=== PATIENT | female | born 1985 | race Caucasian/White ===

== ENCOUNTER 2017-07-08 08:00 | Outpatient (CLI) | payer BC, OTHER | END 2017-07-08 08:01 | disposition home or self-care (01) | LOC: LAB.R 08:00 | PROVIDERS: ATTEND Obstetrics & Gynecology | DX: Z11.3 Encounter for screening for infections with a predominantly sexual mode of transmission (principal) | CPT/HCPCS: 87491; 87591 ==

== ENCOUNTER 2017-08-09 13:40 | Outpatient (CLI) | payer OTHER ==
[2017-08-09 14:05] LABS: BASOPHILS # (AUTO) 0.1 10^3/uL (0.0-0.1); BASOPHILS % (AUTO) 0.6 %; EOSINOPHILS # (AUTO) 0.1 10^3/uL (0.0-0.7); EOSINOPHILS % (AUTO) 1.5 %; HCT - HEMATOCRIT 34.1 % (37.0-47.0); HGB - HEMOGLOBIN 11.9 g/dL (12.0-16.0); LYMPHOCYTES # (AUTO) 2.3 10^3/uL (1.5-3.5); LYMPHOCYTES % (AUTO) 24.3 %; MEAN CORPUSCULAR HEMOGLOBIN 29.9 pg (27.0-31.0); MEAN CORPUSCULAR HGB CONC 34.8 g/dL (32.0-36.0); MEAN CORPUSCULAR VOLUME 85.8 fL (81.0-99.0); MONOCYTES # (AUTO) 0.5 10^3/uL (0.0-1.0); MONOCYTES % (AUTO) 5.1 %; NEUTROPHILS # (AUTO) 6.6 10^3/uL (1.5-6.6); NEUTROPHILS % (AUTO) 68.5 %; RED BLOOD COUNT 3.98 10^6/uL (4.20-5.40); RED CELL DISTRIBUTION WIDTH 13.1 % (12.0-15.0); UNCORRECTED WHITE BLOOD COUNT 9.6 x10^3/uL; WHITE BLOOD COUNT 9.6 x10^3/uL (4.8-10.8)
[2017-08-09 14:12] LABS: BILIRUBIN,URINE NEGATIVE (NEGATIVE); PH,URINE 7.5 PH (5.0-7.5)
[2017-08-09 14:46] LABS: WBC,URINE 0-3 /HPF (0-5)
[2017-08-13 20:01] LABS: TEST RESULT REPORT
== END 2017-08-09 13:41 | disposition home or self-care (01) ==
LOC: LAB 13:40
PROVIDERS: ATTEND Obstetrics & Gynecology
DX: Z36.9 Encounter for antenatal screening, unspecified (principal)
CPT/HCPCS: 36415; 81001; 81599; 85025; 86762; 86850; 86900; 86901; 87340; 87389

== ENCOUNTER 2017-11-25 11:52 | Outpatient (CLI) | payer MEDICAID | END 2017-11-25 11:53 | disposition home or self-care (01) | LOC: LAB 11:52 | PROVIDERS: ATTEND Obstetrics & Gynecology | DX: Z34.90 Encounter for supervision of normal pregnancy, unspecified, unspecified trimester (principal) | CPT/HCPCS: 36415; 82950 ==

== ENCOUNTER 2018-01-03 10:48 | Outpatient (CLI) | payer MEDICAID | END 2018-01-03 10:49 | disposition home or self-care (01) | LOC: LAB.R 10:48 | PROVIDERS: ATTEND Obstetrics & Gynecology | DX: Z36.85 Encounter for antenatal screening for Streptococcus B (principal) | CPT/HCPCS: 87081 ==

== ENCOUNTER 2018-01-30 12:52 | Outpatient (CLI) | payer MEDICAID ==
--- NOTE | 2018-01-30 14:32 | Ultrasound Report ---
OB FOLLOWUP: 01/30/2018 CLINICAL INDICATION: Check size, term . COMPARISON: Report of outside ultrasound dated 09/17/2017. TECHNIQUE: Real-time scanning was performed with litigation claim representative static images obtained. LAST MENSTRUAL PERIOD: 04/21/2017 Clinical Age: 40 weeks 4 days US Age: 40 weeks 2 days EFW Hadlock: 4053 grams EFW% Hadlock: 75% Heart Rate: 140 bpm EDC: 01/26/2018 US EDC: 01/28/2018 BPD Hadlock: 39 weeks 5 days; Mean mm 97 HC Hadlock: 40 weeks 1 day; Mean mm 347 AC Hadlock: 40 weeks 3 days; Mean mm 365 FL Hadlock: 40 weeks 5 days; Mean mm 80 Presentation: cephalic Placental Location: posterior Cervical Length: -- Amniotic Fluid: GLENN 15.4 cm; MVP 5.4 cm FINDINGS: There is a single viable intrauterine gestation, in cephalic presentation. heart rate is 140 BPM. The placenta is posterior, without evidence of previa. Amniotic fluid volume is normal, with an GLENN of 15.4. By size, the fetus measures 40 weeks 2 days (40 weeks 4 days by previous sonogram). Estimated weight by Hadlock method is 4053 grams. IMPRESSION: SINGLE VIABLE INTRAUTERINE GESTATION, WITH EXPECTED GROWTH FROM PREVIOUS OUTSIDE SONOGRAM. ESTIMATED WEIGHT OF 4053 GRAMS. NORMAL GLENN. TD: 01/30/2018 14:17 MTDD
== END 2018-01-30 12:53 | disposition home or self-care (01) ==
LOC: DI 12:52
PROVIDERS: ATTEND Obstetrics & Gynecology
DX: Z36.2 Encounter for other antenatal screening follow-up (principal)
CPT/HCPCS: 76816

== ENCOUNTER 2018-02-05 07:45 | Inpatient (IN) | payer MEDICAID ==
[2018-02-05] MEDS ORDERED: SODIUM CHLORIDE FLUSH 0.9% 10 ML SYRINGE IVP PRN (07:59)
[2018-02-05] MEDS ORDERED: LACTATED RINGERS 1,000 ML IV SCH ×2 (08:00→10:00)
[2018-02-05] MEDS ORDERED: SODIUM CHLORIDE FLUSH 0.9% 10 ML SYRINGE ONE (08:03)
[2018-02-05 08:10] LABS: BASOPHILS # (AUTO) 0.1 10^3/uL (0.0-0.1); BASOPHILS % (AUTO) 0.7 %; EOSINOPHILS # (AUTO) 0.1 10^3/uL (0.0-0.7); EOSINOPHILS % (AUTO) 0.8 %; HGB - HEMOGLOBIN 13.4 g/dL (12.0-16.0); LYMPHOCYTES # (AUTO) 3.7 10^3/uL (1.5-3.5); LYMPHOCYTES % (AUTO) 26.8 %; MEAN CORPUSCULAR HEMOGLOBIN 29.8 pg (27.0-31.0); MEAN CORPUSCULAR HGB CONC 34.4 g/dL (32.0-36.0); MEAN CORPUSCULAR VOLUME 86.6 fL (81.0-99.0); MEAN PLATELET VOLUME 7.7 fL (7.9-10.8); MONOCYTES # (AUTO) 0.8 10^3/uL (0.0-1.0); MONOCYTES % (AUTO) 5.5 %; NEUTROPHILS # (AUTO) 9.2 10^3/uL (1.5-6.6); NEUTROPHILS % (AUTO) 66.2 %; PLT - PLATELET COUNT 240 10^3/uL (130-450); RED BLOOD COUNT 4.51 10^6/uL (4.20-5.40); RED CELL DISTRIBUTION WIDTH 13.3 % (12.0-15.0)
[2018-02-05] MEDS ORDERED: OXYTOCIN/SODIUM CHLORIDE 500 ML IV ONE (08:17)
[2018-02-05] MEDS ORDERED: HYDROmorphone 1 MG/ML CARPUJECT IVP PRN ×2 (08:20→09:09)
[2018-02-05] MEDS ORDERED: LIDOCAINE 1% 50 ML MDV ONE ×2 (08:24→08:52)
[2018-02-05] MEDS ORDERED: HYDROmorphone 0.5 MG/0.5 ML SYRINGE ONE ×2 (08:30→08:39)
[2018-02-05] MEDS ORDERED: SODIUM CHLORIDE FLUSH 0.9% 10 ML SYRINGE IVP SCH (09:00)
[2018-02-05] MEDS ORDERED: diphenhydrAMINE 25 MG CAPSULE PO PRN (09:06)
[2018-02-05] MEDS ORDERED: WITCH HAZEL/GLYCERIN 1 EACH MED..PAD TOP PRN (09:06)
[2018-02-05] MEDS ORDERED: HYDROcod/ACETAM 5/325 MG TABLET PO PRN (09:06)
[2018-02-05] MEDS ORDERED: OXYTOCIN/SODIUM CHLORIDE 250 ML IV ONE (09:06)
[2018-02-05] MEDS ORDERED: ONDANSETRON 4 MG/2 ML VIAL IVP PRN (09:06)
[2018-02-05] MEDS: IBUPROFEN 600 MG TABLET PO SCH ×3 (09:38→22:10)
[2018-02-05] MEDS: ACETAMINOPHEN 500 MG TABLET PO SCH ×2 (09:40→17:52)
[2018-02-05] MEDS: HYDROCORTISONE/PRAMOXINE 10 GM PR PRN ×2 (09:47→22:10)
--- NOTE | 2018-02-05 10:14 | DELIVERY NOTE ---
Delivery Note - Labor Labor: positive: Spontaneous - Delivery Method Delivery Method: positive: Spontaneous vaginal delivery - Presentation Presentation: positive: Vertex - Nuchal Cord Nuchal Cord: positive: None - Anesthetic Anesthetic: positive: Lidocaine - 0.5% plain Volume: positive: Other (27cc) - Amniotic Fluid Description Amniotic Fluid Description: positive: Clear - Episiotomy Type Episiotomy Type: positive: None - Laceration Laceration: positive: 2nd degree - Suture Suture Type: positive: Vicryl Suture Size: positive: 2-0, 3-0 - Delivery Outcome Delivery Outcome: positive: Livebirth - sex: positive: Male (Weight 10 lbs. 10.7 oz) - Placenta Placenta: positive: Intact, Spontaneous - Estimated Blood Loss Estimated Blood Loss (in cc): 400 - Post Delivery Events Post Delivery Events: positive: Shoulder dystocia (Shoulder dystocia uneventfully managed with Woodrow procedure and corkscrew. moved all 4 extremities and had no evidence of brachial palsy. Reference pediatric exam by Dr. Boykin) - Delivery Comments (Free Text/Narrative) Delivery Comments (Free Text/Narrative): macrosomia contributed to difficult delivery with shoulder dystocia and necessitated extensive vaginal repair.
--- NOTE | 2018-02-05 11:55 | HISTORY & PHYSICAL EXAMINATION ---
DATE OF SERVICE: 02/05/2018 Physician: Ranulfo Love MD DIAGNOSES 1. Active labor. 2. Macrosomic infant. HISTORY OF PRESENT ILLNESS: The patient is a 32-year-old woman, 2, para 1, who notes rupture of membranes at 0600 with labor contractions beginning by 6: 08. She had no foul or macrosomic fluid. She is GBS negative. She began to have strong contractions and came immediately to the hospital and was admitted at or around 7:40. Active labor was evident and I was called immediately to evaluate the patient and responded accordingly. At the time of initial evaluation, the patient was 8 cm, +1 station with clear fluid and vertex presentation. Estimated weight was 9 pounds plus. Patient had prior ultrasound evaluation due to fundal height running well above dates that was 4000 grams plus. BASIC LABS: Chlamydia/GC negative; blood type O positive, antibody screen negative. RPR negative, rubella immune, hepatitis B surface antigen negative, HIV negative. Urinalysis negative. anatomy scan normal. Glucola challenge test normal at 99. GBS negative. PAST MEDICAL HISTORY: Right breast lump with lumpectomy in 2012, benign. No nonsurgical hospitalizations or chronic disease history other than pneumonia in college. ALLERGIES: NONE. MEDICATIONS 1. vitamins. 2. Iron. FAMILY HISTORY: No inheritable diseases or chromosomal defects noted. SOCIAL HISTORY: . Self employed user interface artist. No drug, tobacco or alcohol use. REVIEW OF SYSTEMS CONSTITUTIONAL: Negative. RESPIRATORY: Negative. CARDIAC: Negative. BREASTS: Negative. GASTROINTESTINAL: Negative. GENITOURINARY: Negative. No STD history. No abnormal Pap smears. PHYSICAL EXAMINATION GENERAL: Uncomfortable in the throes of labor. VITAL SIGNS: Posted. HEENT: Supple neck, no thyromegaly. LUNGS: Clear. CARDIAC: Regular, no murmur, no gallop. ABDOMEN: No tenderness, No organomegaly or evident hernia UTERUS: Regular uterine contractions every 3 minutes. EFW Estimated at 9-9-1/ 2 pounds. heart tracing category 1. EXTERNAL GENITALIA: No lesions. Cervix 8 cm +1+2. EXTREMITIES: Nonedematous. ADMISSION LABS: Pending. ASSESSMENT: Patient is in active phase of labor and progressing rapidly. Anticipate macrosomic infant. PLAN: Reviewed delivery plan with nursing to include Shoulder dystocia instructions reviewed. Discussed delivery with the patient and possibility of shoulder dystocia. TD: 02/05/2018 11:54 ANDREW
--- NOTE | 2018-02-05 13:34 | PROCEDURE REPORT ---
DATE OF SERVICE: 02/05/2018 Physician: Ranulfo Love MD PREDELIVERY DIAGNOSES 1. 40-week, 3-day gestation. 2. Suspected macrosomia. 3. Active labor. POSTDELIVERY DIAGNOSES 1. Difficult vaginal delivery. 2. Rapidly progressing labor. 3. Shoulder dystocia. 4. Living male infant, macrosomic ( weight 10 pounds, 10.7 ounces), without apparent injury or congenital anomaly. 5. 40-week 3-day gestation. 6. Suspected macrosomia. 7. Active labor. PROCEDURES 1. Spontaneous vaginal delivery manually assisted. 2. Woodrow procedure. 3. Corkscrew procedure to relieve shoulder dystocia. 4. Repair of extensive vaginal and perineal laceration (grade 2 midline and right lateral). WASH AND GREASER: Ranulfo Love MD, FACOG, FICS HOME MISSION WORKER: Dr. Boykin, Pediatrics, arrived shortly after delivery. ANESTHESIA 1. 27 mL of lidocaine 1% local to perineum and vagina. 2. Dilaudid IV push, total of 1 mg that was given in two 0.5 mg doses. DRAINS: None. ESTIMATED BLOOD LOSS: 400 mL COMPLICATIONS: Shoulder dystocia, resolved with Woodrow and corkscrew. FINDINGS: Patient's labor began at 0600 with rupture of membranes and contractions following shortly thereafter. She presented to the hospital at or about 0730 hours. At time of my examination shortly before 8 a.m., she was 8 cm and progressing rapidly. At 0818 hours, patient crowned atraumatically. There was no cord entanglement or nuchal cord. Macrosomic had challenging shoulders to deliver, which was accomplished with Woodrow and corkscrew. A 10-pound 10.7 ounce infant was birthed, with Apgars of 9/9. There was no obvious injury or congenital anomalies. Reference Dr. Boykin's note, who came shortly after the . Examination of the vagina found a midline laceration that extended inward 3 cm and then to the right lateral sulcus and up another 6 cm. The perineal body was disrupted. However, the external anal sphincter was intact. There was no encroachment on the rectum itself. TECHNIQUE: I came shortly after the patient was being prepared for admission. Her dilation had already progressed from 6 to 8 cm in a short period of time. The head had descended down to +2, which was reassuring given the suspected macrosomia. She had a pelvis proven to 8 pounds 9 ounces, and bony anatomy seemed adequate for a 9-pound . Estimated weight was between 9 and 9.5 pounds. Patient was very uncomfortable but able to follow commands. She was pushing uncontrollably. We used push and stretch to prevent introital damage. There was a moderate amount of caput. Dystocia plan was briefly reviewed with nursing staff and discussed with the patient. and patient were very cooperative and followed instructions well. She was painful from the intensity of the labor. At 0818 hours, the head uneventfully crowned. There was no nuchal cord. Shoulders were slow to deliver. Total time equals X - 1.5 minutes estimated. First, patient was in the high dorsal lithotomy position and hyperflexed hips to complete the Woodrow procedure. Next, a counterclockwise type turn was used to bring the anterior shoulder into the optimal diameter. With mild traction on the head, the shoulder dislodged. There was by this time a substantial laceration, which eased the delivery of the posterior shoulder. Infant was placed on the maternal abdomen and responded well. We did not clamp the cord immediately until pulsations ceased. At that point, cord was doubly clamped and transected. The vaginal lacerations were assessed. The patient was still painful and initially 22 mL of lidocaine was placed in the perineal region and lower vagina. The patient had a difficult time cooperating due to pain and so 0.5 mg of Dilaudid was pushed IV initially, which gave some relief, but not adequate relief. Remainder 0.5 mg was then pushed. Once the patient relaxed, the extent of the laceration became evident. We traced laceration on the right side up to the top and then closed with a running interlocked stitch of 2-0 Vicryl. A second strand of 2-0 Vicryl then was placed from the lateral portion of the tear to the medial and down to the introital ring. The perineal body was reconstructed with 4 sutures of 2-0 Vicryl. Next, the skin was closed with multiple vertical mattress stitches of 2-0 Vicryl. There was an obvious right-sided hematoma that extended from the lower portion of the vulva to the perineum. This remained stable. Ice would be applied at a future point. At this point, patient felt more contractions, and the placenta was expelled intact. It was inspected, and there was no evidence of abruption or infection. Cord was 3-vessel and as noted above, no entanglement. All sponge, needle, and instrument counts were confirmed as correct. Patient recovered quickly. Uterine massage and Pitocin stemmed uterine blood loss. Glove check was made of the rectum to ensure there were no occult lacerations. Mother, father, and infant all bonded well. She began nursing immediately. BASIC LABS: GBS negative, RPR negative, rubella immune, blood type O positive, antibody screen negative. TD: 02/05/2018 12:13
[2018-02-05] MEDS: DOCUSATE SODIUM 100 MG CAPSULE PO SCH (22:06)
[2018-02-06] MEDS: IBUPROFEN 600 MG TABLET PO SCH ×2 (05:51→12:46)
[2018-02-06] MEDS: ACETAMINOPHEN 500 MG TABLET PO SCH ×2 (05:51→16:06)
--- NOTE | 2018-02-06 06:25 | PROVIDER PROGRESS NOTE ---
Subjective - Prog Note Date Prog Note Date: 02/06/18 Prog Note Time: 06:00 - Subjective Pt reports feeling: Improved Subjective: Mrs. Power delivered a macrosomic infant yesterday and is recovering well. She reports no problems with defecation or micturition. She has no fevers chills or symptoms suggestive of PIH. Breast-feeding is going well with good latch on and adequate letdown. Patient would like to leave this afternoon if possible because of her son's birthday green party. Thus far she is been able to do self-care activities such as washing toileting walking etc. Objective - Vital Signs/Intake & Output Vital Signs: Vital Signs x48h Temp Pulse Resp BP Pulse Ox 02/06/18 05:30 97.9 F 84 16 123/71 100 02/06/18 01:02 98.4 F 80 16 123/67 98 02/05/18 22:26 97.8 F 88 16 118/76 Intake & Output: Intake & Output 02/03/18 02/04/18 02/05/18 02/06/18 23:59 23:59 23:59 23:59 Intake Total 1150 250 Output Total 850 Balance 300 250 - Lab Results Fish Bones: 02/05/18 08:00 Other Labs: Lab Results x24hrs 02/05/18 Range/Units 08:00 WBC 14.0 H (4.8-10.8) x10^3/uL RBC 4.51 (4.20-5.40) 10^6/uL Hgb 13.4 (12.0-16.0) g/dL Hct 39.0 (37.0-47.0) % MCV 86.6 (81.0-99.0) fL MCH 29.8 (27.0-31.0) pg MCHC 34.4 (32.0-36.0) g/dL RDW 13.3 (12.0-15.0) % Plt Count 240 (130-450) 10^3/uL MPV 7.7 L (7.9-10.8) fL Neut # 9.2 H (1.5-6.6) 10^3/uL Lymph # 3.7 H (1.5-3.5) 10^3/uL Gosper # 0.8 (0.0-1.0) 10^3/uL Eos # 0.1 (0.0-0.7) 10^3/uL Baso # 0.1 (0.0-0.1) 10^3/uL Absolute Nucleated RBC 0.01 x10^3/uL Nucleated RBC % 0.0 /100WBC Exam - Exam Vital Signs: Vital Signs (72 hours) 02/05/18 02/05/18 02/05/18 09:00 09:21 09:31 Temperature Heart Rate [ 105 H 96 96 Apical] Respiratory 20 20 18 Rate Blood Pressure 143/55 H 117/70 124/83 H [Right Brachial artery] O2 Saturation 98 99 99 02/05/18 02/05/18 02/05/18 09:56 10:06 10:16 Temperature Heart Rate [ 89 97 98 Apical] Respiratory 16 Rate Blood Pressure 132/75 H 131/83 H 136/77 H [Right Brachial artery] O2 Saturation 99 99 99 02/05/18 02/05/18 02/05/18 10:30 10:59 13:12 Temperature 98.8 F Heart Rate [ 103 H 92 Apical] Respiratory Rate Blood Pressure 115/69 124/79 [Right Brachial artery] O2 Saturation 99 99 02/05/18 02/05/18 02/05/18 13:35 18:00 22:26 Temperature 99.0 F 97.8 F Heart Rate [ 90 98 88 Apical] Respiratory 16 22 16 Rate Blood Pressure 110/73 102/88 H 118/76 [Right Brachial artery] O2 Saturation 100 99 02/06/18 02/06/18 01:02 05:30 Temperature 98.4 F 97.9 F Heart Rate [ 80 84 Apical] Respiratory 16 16 Rate Blood Pressure 123/67 123/71 [Right Brachial artery] O2 Saturation 98 100 General: Alert, Oriented x3, Cooperative HEENT: Mucous membr. moist/pink Lungs: Clear to auscultation Cardiovascular: Regular rate Abdomen: Normal bowel sounds, No tenderness, Other (Uterus is 17 weeks size firm and nontender. Lochia is rubra non-foul and reported as mild.) Extremities: No edema Skin: No rashes Psych/Mental Status: Mental status NL, Mood NL Assessment/Plan - Assessment/Plan Assessment: Patient is recovering well from a macrosomic with second-degree laceration. Patient strongly desires to go home this afternoon and if recovery continues we hope to honor her wishes. Plan: Continue supportive care today. If pediatrics clears infant for discharge and no problems arise with mother, she may be discharged later this afternoon at 1500 hrs.
--- NOTE | 2018-02-06 07:14 | DISCHARGE SUMMARY ---
Physician: Ranulfo Love MD DATE OF ADMISSION: 02/05/2018 DATE OF DISCHARGE: 02/06/2018 DIAGNOSES 1. A 40-week gestation, in active labor. 2. Delivery of a macrosomic infant (10 pounds 10.7 ounces). 3. Shoulder dystocia. PROCEDURE: Assisted vaginal delivery with the repair of second degree laceration; Woodrow maneuver and corkscrew maneuver to successfully resolve shoulder dystocia. COMPLICATIONS: Shoulder dystocia, resolved successfully. HISTORY: Patient is a 32-year-old, , 2, para 1 woman who had ruptured membranes and was in active labor at the time of her presentation. She is GBS negative. She was having strong contractions and labor advanced rapidly. Reference typewritten H and P. BASELINE LABORATORIES: Blood type O positive, antibody screen negative, RPR negative, rubella immune, hepatitis B surface negative, HIV negative and normal glucose tolerance test and negative GBS. HOSPITAL COURSE: Patient rapidly moved through the latter stages of the active phase and had a short second stage of labor. During assessment, patient was suspected to have macrosomic , 9 to 9.5 pounds. Head descended well and overall second stage of labor progressed well. Push and stretch technique was used and the crowned at 0818. After , the shoulders were tight and impacted behind the pubis. Patient was moved in Woodrow and finally resolved with corkscrew. A 10-pound 10.7-ounce infant was delivered without complication, and scored Apgars of [address] Boykin evaluated the infant soon after delivery. Reference typewritten note. Post delivery, patient did well, rapidly advancing full diet and activity. She defecated and micturated without problems. Her wound remained intact. Preoperative hemoglobin was 13.4 and postoperative pending. Throughout post-delivery day 1, patient steadily gained strength and regained normal function. She nursed well. She strongly desired discharge to attend her 1 child's birthday. With pediatric clearance, she was discharged home. Complete wound care, including daily sitz baths, was reviewed with patient. Warning signs were reviewed to include fever, foul discharge, perineal tenderness and abdominal pain. DISCHARGE MEDICATIONS Were: 1. Motrin 600 q.4 hours. 2. [place] 325/5 q.6 hours p.r.n. breakthrough pain. 3. Colace 250 b.i.d. FOLLOWUP: Patient will be reevaluated in 2 weeks for a wound check. TD: 02/06/2018 07:13 MTDD
[2018-02-06 09:09] LABS: BASOPHILS # (AUTO) 0.1 10^3/uL (0.0-0.1); BASOPHILS % (AUTO) 0.6 %; EOSINOPHILS # (AUTO) 0.1 10^3/uL (0.0-0.7); EOSINOPHILS % (AUTO) 0.7 %; HGB - HEMOGLOBIN 11.8 g/dL (12.0-16.0); LYMPHOCYTES # (AUTO) 2.4 10^3/uL (1.5-3.5); LYMPHOCYTES % (AUTO) 18.5 %; MEAN CORPUSCULAR HEMOGLOBIN 29.9 pg (27.0-31.0); MEAN CORPUSCULAR HGB CONC 34.3 g/dL (32.0-36.0); MEAN PLATELET VOLUME 7.7 fL (7.9-10.8); MONOCYTES # (AUTO) 0.5 10^3/uL (0.0-1.0); MONOCYTES % (AUTO) 3.6 %; NEUTROPHILS # (AUTO) 9.8 10^3/uL (1.5-6.6); NEUTROPHILS % (AUTO) 76.6 %; PLT - PLATELET COUNT 211 10^3/uL (130-450); RED BLOOD COUNT 3.96 10^6/uL (4.20-5.40); RED CELL DISTRIBUTION WIDTH 13.5 % (12.0-15.0); WHITE BLOOD COUNT 12.8 x10^3/uL (4.8-10.8)
[2018-02-06] MEDS: DOCUSATE SODIUM 100 MG CAPSULE PO SCH (10:39)
[2018-02-06 11:31] VITALS: BP 118/66
--- NOTE | 2018-02-06 18:16 | Labor Flowsheet ---
Labor Flowsheet Datetime Report Generated by CPN: 02/06/2018 18:15 Datetime: 02/06/2018 10:19 VITAL SIGNS NBP Sys/Vangie/Mean (mmHg): 118 : 66 : 79 Pulse: 87 LaborFlag: Labor Datetime: 02/06/2018 01:04 SpO2 (%): 98 Datetime: 02/05/2018 08:26 VAGINAL EXAM Membranes Ruptured Date/Time: 02/04/2018 06:00 Membranes Rupture Method: Spontaneous Amniotic Fluid Color: Clear Amniotic Fluid Amount: Small Amniotic Fluid Odor: Normal Datetime: 02/05/2018 08:12 ASSESSMENT A Monitor Interventions for FHR: Ultrasound Adjusted Variability: Moderate 6-25 bpm Decelerations: Early Category: Category II Datetime: 02/05/2018 08:10 Stage 2 Comments: Shoulder dystocia noted. Woodrow performed. Provider using corkscrew manuever. Datetime: 02/05/2018 08:09 Pushing Progress: with Pushing; Pushing Effectively with Contractions Datetime: 02/05/2018 08:05 COMMUNICATION Communication Comments: Dr. Love @ bedside for delivery Datetime: 02/05/2018 08:04 STAGE 2 Pushing: Coached on Pushing; Urge to Push; Involuntary Pushing Pushing Position: Pushing with Contractions
== END 2018-02-06 16:20 | disposition home or self-care (01) | DRG 775 ==
LOC: WFO 07:45 → FBP 07:46 → WFO 07:49 → FBP 07:50
PROVIDERS: ADMIT Obstetrics & Gynecology; ATTEND Obstetrics & Gynecology
PROC: 10E0XZZ Delivery of Products of Conception, External Approach (ICD-10-PCS; principal; 2018-02-05)
PROC: 0KQM0ZZ Repair Perineum Muscle, Open Approach (ICD-10-PCS; 2018-02-05)
DX: O66.2 Obstructed labor due to unusually large fetus (principal); O66.0 Obstructed labor due to shoulder dystocia; O70.1 Second degree perineal laceration during delivery; Z3A.40 40 weeks gestation of pregnancy; Z37.0 Single live birth
CPT/HCPCS: 85025

== ENCOUNTER 2021-05-01 08:00 | Outpatient (CLI) | payer MEDICAID, OTHER ==
[2021-05-02 11:45] LABS: BILIRUBIN,URINE NEGATIVE (NEGATIVE); CLARITY,URINE CLEAR (CLEAR); GLUCOSE, URINE (UA) NEGATIVE (NEGATIVE); KETONES,URINE (UA) NEGATIVE (NEGATIVE); LEUKOCYTE ESTERASE, URINE NEGATIVE (NEGATIVE); NITRITE,URINE NEGATIVE (NEGATIVE); OCCULT BLOOD,URINE NEGATIVE (NEGATIVE); PROTEIN,URINE NEGATIVE (NEGATIVE); UROBILINOGEN,URINE 0.2 (NORMAL) E.U./dL (NORMAL)
== END 2021-05-01 08:01 | disposition home or self-care (01) ==
LOC: LAB.R 08:00
PROVIDERS: ATTEND Nurse Practitioner Obstetrics & Gynecology
DX: Z32.01 Encounter for pregnancy test, result positive (principal)
CPT/HCPCS: 81001; 81003; 87086

== ENCOUNTER 2021-05-23 15:16 | Outpatient (CLI) | payer MEDICAID ==
--- NOTE | 2021-05-23 16:51 | Ultrasound Report ---
PROCEDURE: OB First Trimester w/TV INDICATIONS: POSITIVE TEST OUTSIDE/PRIOR DATING DATA: Last menstrual period (LMP): 03/07/2021. LMP-based estimated date of delivery (RAKEL): 12/12/2021. TECHNIQUE: Real-time scanning was performed of the fetus and maternal pelvic organs, with image documentation. Endovaginal scanning was also performed to better visualize the fetus and maternal ovaries. COMPARISON: None FINDINGS: Embryo: There is a intrauterine gestation measuring 18 mm crown-rump length corresponding 20 week 2 day gestation. No cardiac activity is present. Measurement variability in dating: +/- 4 weeks by LMP, +/- 7 days by mean sac diameter (use before 6 weeks gestation if crown-rump length not able to be measured), +/- 5 days by crown-rump length (6-12 weeks gestation). Maternal organs: Ovaries Limited evaluation is within normal limits. IMPRESSION: demise. Reviewed by: Marques So MD on 05/23/2021 4:49 PM PDT Approved by: Marques So MD on 05/23/2021 4:49 PM PDT Station ID: [id number]
== END 2021-05-23 15:17 | disposition home or self-care (01) ==
LOC: DI 15:16
PROVIDERS: ATTEND Nurse Practitioner Obstetrics & Gynecology
DX: O02.1 Missed abortion (principal); Z36.89 Encounter for other specified antenatal screening; Z3A.20 20 weeks gestation of pregnancy
CPT/HCPCS: 36415; 85025; 86592; 86762; 86787; 86803; 86850; 86900; 86901; 87340; 87389

== ENCOUNTER 2021-05-23 15:23 | Outpatient (CLI) | payer MEDICAID ==
[2021-05-23 15:44] LABS: BASOPHILS # (AUTO) 0.1 10^3/uL (0.0-0.1); BASOPHILS % (AUTO) 0.8 %; EOSINOPHILS # (AUTO) 0.1 10^3/uL (0.0-0.7); EOSINOPHILS % (AUTO) 1.2 %; HCT - HEMATOCRIT 38.9 % (37.0-47.0); LYMPHOCYTES # (AUTO) 1.5 10^3/uL (1.5-3.5); LYMPHOCYTES % (AUTO) 16.9 %; MEAN CORPUSCULAR HEMOGLOBIN 29.5 pg (27.0-31.0); MEAN CORPUSCULAR HGB CONC 33.4 g/dL (32.0-36.0); MEAN CORPUSCULAR VOLUME 88.2 fL (81.0-99.0); MEAN PLATELET VOLUME 9.3 fL (7.9-10.8); MONOCYTES # (AUTO) 0.5 10^3/uL (0.0-1.0); MONOCYTES % (AUTO) 5.6 %; NEUTROPHILS # (AUTO) 6.7 10^3/uL (1.5-6.6); NEUTROPHILS % (AUTO) 75.3 %; PLT - PLATELET COUNT 233 10^3/uL (130-450); RED BLOOD COUNT 4.41 10^6/uL (4.20-5.40); RED CELL DISTRIBUTION WIDTH 12.2 % (12.0-15.0); WHITE BLOOD COUNT 8.9 x10^3/uL (4.8-10.8)
[2021-05-24 12:12] LABS: HEPATITIS B SURFACE ANTIGEN NON-REACTIVE (NON-REACTIVE)
[2021-05-24 12:56] LABS: HEPATITIS C ANTIBODY NON-REACTIVE (NON-REACTIVE)
[2021-05-24 15:31] LABS: HIV AG/AB 4TH GEN NON-REACTIVE (NON-REACTIVE)
== END 2021-05-23 15:24 | disposition home or self-care (01) ==
LOC: LAB 15:23
PROVIDERS: ATTEND Nurse Practitioner Obstetrics & Gynecology
DX: Z32.01 Encounter for pregnancy test, result positive (principal); Z53.9 Procedure and treatment not carried out, unspecified reason
CPT/HCPCS: 36415; 85025; 86592; 86762; 86787; 86803; 86850; 86900; 86901; 87340; 87389

== ENCOUNTER 2021-05-29 14:48 | Outpatient (CLI) | payer MEDICAID | END 2021-05-29 14:49 | disposition home or self-care (01) | LOC: LAB 14:48 | PROVIDERS: ATTEND Advanced Practice Midwife | DX: O02.1 Missed abortion (principal) | CPT/HCPCS: 36415; 84702 ==

== ENCOUNTER 2021-06-05 15:38 | Outpatient (CLI) | payer MEDICAID | END 2021-06-05 15:39 | disposition home or self-care (01) | LOC: LAB 15:38 | PROVIDERS: ATTEND Advanced Practice Midwife | DX: O02.1 Missed abortion (principal) | CPT/HCPCS: 36415; 84702 ==

== ENCOUNTER 2021-06-13 14:27 | Outpatient (CLI) | payer MEDICAID | END 2021-06-13 14:28 | disposition home or self-care (01) | LOC: LAB 14:27 | PROVIDERS: ATTEND Advanced Practice Midwife | DX: O02.1 Missed abortion (principal) | CPT/HCPCS: 36415; 84702 ==

== ENCOUNTER 2021-08-09 11:30 | Outpatient (CLI) | payer MEDICAID ==
[2021-08-09 16:21] LABS: BILIRUBIN,URINE NEGATIVE (NEGATIVE); GLUCOSE, URINE (UA) NEGATIVE (NEGATIVE); KETONES,URINE (UA) NEGATIVE (NEGATIVE); LEUKOCYTE ESTERASE, URINE NEGATIVE (NEGATIVE); NITRITE,URINE NEGATIVE (NEGATIVE); OCCULT BLOOD,URINE NEGATIVE (NEGATIVE); PH,URINE 6.5 PH (5.0-7.5); PROTEIN,URINE NEGATIVE (NEGATIVE); UROBILINOGEN,URINE 0.2 (NORMAL) E.U./dL (NORMAL)
[2021-08-09 16:33] LABS: AMORPHOUS SEDIMENT,UR Moderate /LPF; BACTERIA,URINE None Seen /HPF (None Seen); CLARITY,URINE SL. CLOUDY (CLEAR); RBC,URINE None Seen /HPF (0-5); SQUAMOUS EPITHELIAL CELL,UR NONE SEEN (<= Few); WBC,URINE 0-3 /HPF (0-5)
== END 2021-08-09 23:59 | disposition home or self-care (01) ==
LOC: LAB 11:30
PROVIDERS: ATTEND Nurse Practitioner Obstetrics & Gynecology
DX: Z32.01 Encounter for pregnancy test, result positive (principal); Z87.59 Personal history of other complications of pregnancy, childbirth and the puerperium
CPT/HCPCS: 36415; 81001; 84702; 87086

== ENCOUNTER 2021-08-09 15:53 | Outpatient (CLI) | payer MEDICAID | END 2021-08-09 15:54 | disposition home or self-care (01) | LOC: LAB 15:53 | PROVIDERS: ATTEND Nurse Practitioner Obstetrics & Gynecology | DX: Z32.01 Encounter for pregnancy test, result positive (principal); Z87.59 Personal history of other complications of pregnancy, childbirth and the puerperium | CPT/HCPCS: 36415; 84702 ==

== ENCOUNTER 2021-08-12 12:00 | Outpatient (CLI) | payer MEDICAID | END 2021-08-12 12:01 | disposition home or self-care (01) | LOC: LAB.N 12:00 | PROVIDERS: ATTEND Nurse Practitioner Obstetrics & Gynecology | DX: O02.1 Missed abortion (principal); Z87.59 Personal history of other complications of pregnancy, childbirth and the puerperium | CPT/HCPCS: 36415; 84702 ==

== ENCOUNTER 2021-08-15 14:23 | Outpatient (CLI) | payer MEDICAID | END 2021-08-15 14:24 | disposition home or self-care (01) | LOC: LAB 14:23 | PROVIDERS: ATTEND Nurse Practitioner Obstetrics & Gynecology | DX: Z32.01 Encounter for pregnancy test, result positive (principal); Z87.59 Personal history of other complications of pregnancy, childbirth and the puerperium | CPT/HCPCS: 36415; 84702 ==

== ENCOUNTER 2021-08-19 12:27 | Outpatient (CLI) | payer MEDICAID | END 2021-08-19 12:28 | disposition home or self-care (01) | LOC: LAB 12:27 | PROVIDERS: ATTEND Nurse Practitioner Obstetrics & Gynecology | DX: Z32.01 Encounter for pregnancy test, result positive (principal); Z87.59 Personal history of other complications of pregnancy, childbirth and the puerperium | CPT/HCPCS: 36415; 84702 ==

== ENCOUNTER 2021-08-20 14:30 | Outpatient (CLI) | payer MEDICAID ==
--- NOTE | 2021-08-20 18:20 | Ultrasound Report ---
PROCEDURE: OB First Trimester INDICATIONS: +PREG TEST. H/O SAB OUTSIDE/PRIOR DATING DATA: Last menstrual period (LMP): 06/26/2021. LMP-based estimated date of delivery (RAKEL): 04/02/2022. First dating scan (date and location): 08/20/2021. Estimated date of delivery (RAKEL) from first dating scan: 04/07/2022 TECHNIQUE: Real-time scanning was performed of the fetus and maternal pelvic organs, with image documentation. COMPARISON: None FINDINGS: Embryo: Single intrauterine living with crown-rump length measuring 1.0 cm corresponding t o 7 weeks 1 day. No significant perigestational hemorrhage. Heart rate: 130 bpm. Measurement variability in dating: +/- 4 weeks by LMP, +/- 7 days by mean sac diameter (use before 6 weeks gestation if crown-rump length not able to be measured), +/- 5 days by crown-rump length (6-12 weeks gestation). Maternal organs: Within the right ovary is a hypoechoic cystic lesion with peripheral vascularity giancarlo suring 1.8 x 1.6 x 1.7 cm likely representing a corpus luteal cyst. Unremarkable appearance of the le ft ovary. The cervix appears closed. IMPRESSION: Single living intrauterine with crown-rump length corresponding to gestational age of 7 wee ks 1 day with RAKEL of 04/07/2022. heart rate is measured at 130 bpm. Right ovarian corpus luteal cyst. Reviewed by: Donal Medley DO on 08/20/2021 5:18 PM DAVONTE Approved by: Donal Medley DO on 08/20/2021 5:18 PM DAVONTE Station ID: [id number]
== END 2021-08-20 14:31 | disposition home or self-care (01) ==
LOC: DI 14:30
PROVIDERS: ATTEND Nurse Practitioner Obstetrics & Gynecology
DX: O09.291 Supervision of pregnancy with other poor reproductive or obstetric history, first trimester (principal); O34.81 Maternal care for other abnormalities of pelvic organs, first trimester; N83.11 Corpus luteum cyst of right ovary; Z3A.01 Less than 8 weeks gestation of pregnancy

== ENCOUNTER 2021-08-25 16:00 | Outpatient (CLI) | payer MEDICAID ==
[2021-08-25 22:07] LABS: CHLAMYDIA TRACHOMATIS DNA NEGATIVE (NEGATIVE); NEISSERIA GONORRHOEAE DNA NEGATIVE (NEGATIVE); TRICHOMONAS VAGINALIS DNA NEGATIVE (NEGATIVE)
== END 2021-08-25 16:01 | disposition home or self-care (01) ==
LOC: LAB.R 16:00
PROVIDERS: ATTEND Nurse Practitioner Obstetrics & Gynecology
DX: Z11.3 Encounter for screening for infections with a predominantly sexual mode of transmission (principal)
CPT/HCPCS: 87491; 87591; 87661

== ENCOUNTER 2021-11-13 08:39 | Outpatient (CLI) | payer OTHER ==
--- NOTE | 2021-11-13 16:58 | Ultrasound Report ---
PROCEDURE: OB Detailed Eval INDICATIONS: SUPERVISION OF NORMAL OUTSIDE/PRIOR DATING DATA: Last menstrual period (LMP): 06/26/2021. LMP-based estimated date of delivery (RAKEL): 04/02/2022. First dating scan (date and location): 08/20/2021. Estimated date of delivery (RAKEL) from first dating scan: 04/07/2022. TECHNIQUE: Real-time scanning was performed of the fetus, with image documentation and biometric measurements. Endovaginal scanning: No COMPARISON: 08/20/2021 FINDINGS: General: A single living intrauterine gestation is present. Presentation: Vertex Placenta: Placental position is anterior, without previa. Amniotic fluid index: 12.5 cm heart rate: 152 beats per minute. Maternal cervical canal: 4 cm long; normal length is 2.5 cm or more. biometrics: Biparietal diameter: 48 mm; 20 weeks 3 days Head circumference: 175 mm; 20 weeks 0 days Abdominal circumference: 147 mm; 20 weeks 0 days Femur length: 33 mm; 20 weeks 1 day Estimated gestational age from initial scan: 19 weeks 2 days Composite gestational age from present scan: 20 weeks 1 day Estimated weight and percentile: 330.4 g, which is at the 87th percentile for gestational age. Measurement variability in biometric dating: +/- 10 days from 12-20 weeks gestation, +/- 2 weeks from 20-30 weeks gestation, +/- 3 weeks at 30 weeks gestation or later. Anatomic survey: Neuro: Ventricles are normal at less than 10 mm. Cisterna magna is normal at 3-11 mm. Cerebellum i s normal in size and morphology. Nuchal skin fold: Normal at less than 6 mm between 14 and 20 weeks gestational age. Face: Nose and lips are within normal limits. profile not well seen. Spine: No evidence for s abraham bifida. Heart: 4-chambered heart is present, with normal ventricular outflow tracts. Diaphragm: Diaphragm is intact. Stomach: Left-sided stomach is present. Kidneys: No hydronephrosis. Normal is less than 5 mm in 2nd trimester, less than 7 mm in 3rd trimester. Cord: 3 vessel cord has orthotopic insertion. Bladder: Normal in size. Extremities: All 4 extremities are visualized. IMPRESSION: 1. Single living intrauterine gestation. 2. Suboptimal evaluation of profile. 3. Otherwise normal survey of anatomy. Reviewed by: Marques So MD on 11/13/2021 4:56 PM PST Approved by: Marques So MD on 11/13/2021 4:56 PM PST Station ID: [id number]
== END 2021-11-13 08:40 | disposition home or self-care (01) ==
LOC: DI 08:39
PROVIDERS: ATTEND Nurse Practitioner Obstetrics & Gynecology
DX: Z34.92 Encounter for supervision of normal pregnancy, unspecified, second trimester (principal); Z3A.20 20 weeks gestation of pregnancy; Z36.89 Encounter for other specified antenatal screening

== ENCOUNTER 2022-01-08 11:54 | Outpatient (CLI) | payer OTHER ==
[2022-01-08 13:14] LABS: HCT - HEMATOCRIT 36.3 % (37.0-47.0); HGB - HEMOGLOBIN 12.2 g/dL (12.0-16.0); MEAN CORPUSCULAR HEMOGLOBIN 30.6 pg (27.0-31.0); MEAN CORPUSCULAR HGB CONC 33.6 g/dL (32.0-36.0); MEAN PLATELET VOLUME 9.6 fL (7.9-10.8); RED BLOOD COUNT 3.99 10^6/uL (4.20-5.40); RED CELL DISTRIBUTION WIDTH 12.9 % (12.0-15.0); WHITE BLOOD COUNT 11.5 x10^3/uL (4.8-10.8)
== END 2022-01-08 11:55 | disposition home or self-care (01) ==
LOC: LAB 11:54
PROVIDERS: ATTEND Nurse Practitioner Obstetrics & Gynecology
DX: Z36.9 Encounter for antenatal screening, unspecified (principal)
CPT/HCPCS: 36415; 82950; 85027

== ENCOUNTER 2022-04-09 07:06 | Inpatient (IN) | payer MEDICAID ==
[2022-04-09] MEDS ORDERED: SODIUM CHLORIDE FLUSH 0.9% 10 ML SYRINGE IVP PRN (08:40)
[2022-04-09] MEDS ORDERED: LACTATED RINGERS 1,000 ML IV SCH (09:00)
[2022-04-09] MEDS ORDERED: SODIUM CHLORIDE FLUSH 0.9% 10 ML SYRINGE IVP SCH (09:00)
[2022-04-09 09:45] LABS: BASOPHILS # (AUTO) 0.1 10^3/uL (0.0-0.1); BASOPHILS % (AUTO) 0.8 %; EOSINOPHILS # (AUTO) 0.1 10^3/uL (0.0-0.7); EOSINOPHILS % (AUTO) 1.4 %; HCT - HEMATOCRIT 37.4 % (37.0-47.0); HGB - HEMOGLOBIN 12.7 g/dL (12.0-16.0); LYMPHOCYTES # (AUTO) 1.3 10^3/uL (1.5-3.5); LYMPHOCYTES % (AUTO) 16.8 %; MEAN CORPUSCULAR HEMOGLOBIN 29.7 pg (27.0-31.0); MEAN CORPUSCULAR VOLUME 87.4 fL (81.0-99.0); MEAN PLATELET VOLUME 10.4 fL (7.9-10.8); MONOCYTES # (AUTO) 0.5 10^3/uL (0.0-1.0); MONOCYTES % (AUTO) 6.3 %; NEUTROPHILS # (AUTO) 5.9 10^3/uL (1.5-6.6); NEUTROPHILS % (AUTO) 74.4 %; PLT - PLATELET COUNT 215 10^3/uL (130-450); RED BLOOD COUNT 4.28 10^6/uL (4.20-5.40); RED CELL DISTRIBUTION WIDTH 12.9 % (12.0-15.0)
--- NOTE | 2022-04-09 10:09 | HISTORY & PHYSICAL EXAMINATION ---
Admit History - Visit Reason Visit Reason: Other - : 4 Parity: 2 Premature: 0 Ectopic: 1 : 2 Care: positive: [facility] Risk/History: positive: None Complications This : positive: None Smoking Status: Never smoker - Mother's Labs Mother's Blood Type: positive: O Mother's RH: positive: Positive GBS: positive: Group B Step Negative Rubella Status: positive: Immune Meds/Allgy - Allergies Allergies/Adverse Reactions: Allergies Allergy/AdvReac Type Severity Reaction Status Date / Time No Known Drug Allergies Allergy Verified 02/06/16 06:49 Review of Systems - Constitutional Constitutional: denies: Fatigue, Fever, Chills, Malaise - Eyes Eyes: denies: Blurred vision, Spots in vision, Dipolpia - Cardiovascular Cariovascular: denies: Irregular heart rate, Palpitations, Chest pain, Edema - Respiratory Respiratory: denies: Cough, SOB at rest - Gastrointestinal Gastrointestinal: denies: Constipation, Diarrhea, Nausea, Vomiting - Integumentary Integumentary: denies: Rash, Pruritis - Neurological Neurological: denies: Headache Physical - Abdominal Exam Vital Signs: Temp Pulse Resp BP Pulse Ox 36.8 C 04/09/22 09:08 Contraction Frequency (min/apart): 5-6 Contraction Intensity: positive: Mild Uterine Resting Tone: positive: Soft - Monitoring Heart Rate Baseline: 140 Strip Review: positive: Category I - Presentation Presentation: positive: Vertex - Vaginal Exam Membranes: positive: Membranes intact Dilation (in cm): 5 Effacement (%): 80 Station: positive: -2 Cervical Position: positive: Posterior - Speculum Exam Speculum Exam Performed: positive: No Plan for Labor - Plan For Labor I expect patient to be DC'd or transferred within 96 hours.: Yes Plan for Labor: HPI: This 36yo @ 41.0wks gestation by LMP c/w 7.1wk U/S who presents to [facility] for augmentation of labor secondary to postdates . She reports intermittent, mild contractions for the past 36 hours but nothing she feels she cannot tolerate. She denies vaginal bleeding or leakage of fluid. She reports +FM. Upon arrival she was noted to be 5/80/-2, posterior, soft and vertex with intact membranes. She has a history of precipitous delivery with a 1.5hr labor with her last delivery. She has been a patient of [facility] since her transfer of care from [facility] at 27wks gestation. She has received adequate and consistent care for the duration of her which has remained uncomplicated with the exception of being AMA. She declined genetic screening. She will be admitted for augmentation of labor with AROM. She is supported by her Wilbur. Dating criteria: LMP 06/26/2021 RAKEL by LMP 04/02/2022 Initial U/S @ 7.1wks c/w LMP dating (RAKEL by U/S 04/07/2022) Serial exams - agree OB Hx: G1: 02/07/2016, @ 39.3wks, epidural, [facility], Male, 8lb6oz G2: 02/05/2018, @ 40wks, unmedicated, [facility], Male, [id number] - precipitous delivery G3: 05/25/2021, SAB @ 8wks G4: Current Medications: PNV, FeSO4 325 (65 FE) mg daily Allergies: NKDA PMHx: no significant Surgical Hx: none Social Hx: Never smoker. No ETOH or IVDA. Wilbur. She is a stay at home mom. Family Hx: Breast cancer - aunt; Colon cancer - grandmother course: O pos/Rubella immune VZV: immune Genetic testing: declines FAS: WNL. Anterior placenta, no previa. Size c/w dating (EFW 87%tile). GLENN WNL. 3VC. facial profile not well visualized. Glucola: Influenza: 09/19/2021 Tdap: declined Covid vaccine: declined GBS negative @ HSV: denies in self and partner pap: 12/20/2020 neg, HPV neg Physical Exam: Normocephalic, atraumatic Heart RRR w/o M/G/R Lungs CTAB Abdomen gravid, soft, nontender FHR baseline 145, moderate variability, + accels, no decels Contractions palpate mild every 5-6 minutes with soft resting tone SVE 5/80/-2, posterior. Vertex. AROM @ 1002 - moderate amount of clear fluid EFW 4000g Bilateral LE's no edema Mood is good Assessment: 36yo @ 41.0wks gestation by LMP c/w 7.1wk U/S Early labor Postdates AMA Augmentation of labor GBS neg FHR Category I Plan: Admit for labor augmentation. Continuous monitoring. Encouraged ambulation and position changes. Jacuzzi PRN. Nitrous oxide PRN. Epidural per maternal request. Anticipate .
[2022-04-09] MEDS ORDERED: LIDOCAINE-MPF 1% 30 ML VIAL ID PRN (10:52)
[2022-04-09] MEDS ORDERED: CARBOPROST TROMETHAMINE 250 MCG/ML AMP IM PRN (10:52)
[2022-04-09] MEDS ORDERED: miSOPROStoL 200 MCG TABLET PR PRN (10:52)
[2022-04-09] MEDS ORDERED: miSOPROStoL 200 MCG TABLET BC PRN (10:52)
[2022-04-09] MEDS ORDERED: LABETALOL 20 MG/4 ML SYRINGE IVP PRN (10:52)
[2022-04-09] MEDS ORDERED: METHYLERGONOVINE 0.2 MG/ML VIAL IM PRN (10:52)
[2022-04-09] MEDS ORDERED: TRANEXAMIC ACID IN NACL 1,000 MG/100 ML BAG IV PRN (10:52)
[2022-04-09] MEDS ORDERED: TERBUTALINE 1 MG/ML VIAL SUBQ PRN (10:52)
[2022-04-09] MEDS ORDERED: ONDANSETRON 4 MG/2 ML VIAL IVP PRN (10:52)
[2022-04-09] MEDS ORDERED: OXYTOCIN 10 UNIT/ML VIAL IM PRN (10:52)
[2022-04-09] MEDS: OXYTOCIN/SODIUM CHLORIDE 500 ML IV PRN ×2 (14:19→15:35)
[2022-04-09] MEDS ORDERED: WITCH HAZEL/GLYCERIN 1 PAD TOP PRN (14:42)
[2022-04-09] MEDS ORDERED: HYDROCORTISONE 1% CREAM 28 GM TUBE PR PRN (14:42)
--- NOTE | 2022-04-09 14:59 | DELIVERY NOTE ---
Delivery Note - Labor Labor: positive: Augmented by ARM - Infant Delivery Method Delivery Method: positive: Spontaneous vaginal delivery - Presentation Presentation: positive: Vertex, LETTY - right occiput anterior - Nuchal Cord Nuchal Cord: positive: None - Amniotic Fluid Description Amniotic Fluid Description: positive: Clear - Episiotomy Type Episiotomy Type: positive: None - Laceration Laceration: positive: 1st degree, Perineal - Suture Suture Type: positive: Vicryl Suture Size: positive: 3-0 - Delivery Outcome Delivery Outcome: positive: Livebirth - Brule : positive: Placed in direct skin contact with mother, Bulb syringe, Stimulated, Warmed, [place] used sex: positive: Male - Cord Cord: positive: 3 vessels - Placenta Placenta: positive: Intact, Spontaneous - Estimated Blood Loss Estimated Blood Loss (in cc): 250 - Post Delivery Events Post Delivery Events: positive: No post delivery events - Delivery Comments (Free Text/Narrative) Delivery Comments (Free Text/Narrative): Labor: This 36yo @ 41.0wks gestation by LMP c/w 7.1wk U/S presented to [facility] for augmentation of labor secondary to postdates . Cervix was 5/80/-2 vertex and posterior with intact membranes. AROM occurred at 1002 and was noted to be a moderate amount of clear fluid. FHR pattern demonstrated Category I pattern throughout labor. Normal labor course. Pt progressed to c/c/+1 and pushing spontaneously at 1404. : Normal of viable male on 04/09/2022 @ 1410. No nuchal cord. The was placed on maternal abdomen, stimulated, dried, and placed skin to skin. Apgars were 8/9 at 1 and 5 minutes respectively. Pitocin administered via IV for hemostasis. The umbillical cord was allowed to stop pulsating at which time it was doubly clamped by CNM and cut by FOB. Cord blood obtained. 3VC. Fundal massage and gentle cord traction applied for active management of the third stage. Placenta delivered spontaneously and intact at 1415. EBL 250mL. Fourth stage: Uterine fundus firm and there is no excessive bleeding. The perineum, vagina, and cervix were inspected and found to have minor first degree perineal laceration which was repaired using a 3-[address]-1 needle in standard fashion and under sterile conditions. Vaginal examination following repair was performed. Tissues well approximately. initiated. Family bonding well. Both mother and baby were left in stable condition.
[2022-04-09] MEDS: ACETAMINOPHEN 500 MG TABLET PO SCH ×2 (15:31→23:32)
[2022-04-09] MEDS: IBUPROFEN 800 MG TABLET PO SCH ×2 (15:31→21:14)
[2022-04-09] MEDS: DOCUSATE SODIUM 100 MG CAPSULE PO SCH (21:14)
[2022-04-10] MEDS: IBUPROFEN 800 MG TABLET PO SCH ×3 (03:33→17:00)
[2022-04-10] MEDS: ACETAMINOPHEN 500 MG TABLET PO SCH ×2 (08:17→16:59)
[2022-04-10] MEDS: DOCUSATE SODIUM 100 MG CAPSULE PO SCH (09:39)
--- NOTE | 2022-04-10 10:20 | Discharge Plan ---
Discharge Plan Problem Reviewed?: Yes Disposition: Home, Self Care Condition: Good Diet: Regular Activity Restrictions: No Restrictions Shower Restrictions: No Driving Restrictions: No Weight Bearing: Full Weight Instruction Topics: Vaginal After No Smoking: If you smoke, Please STOP! Call for help. Follow-up with: Gayla Chino CNM, ARNP [Provider Admit Priv/Credential] - 1 Week (04/17/2022 @ 4:15 - phone call visit)
--- NOTE | 2022-04-10 10:32 | DISCHARGE SUMMARY ---
Discharge Summary Condition at Discharge: Good Discharge Disposition: 01 Home, Self Care - HOSPITAL COURSE Hospital Course: Date of Admission: 04/09/2022 Date of Discharge: 04/10/2022 Diagnosis on Admission: 1. 36yo @ 41.0wks gestation 2. Postdates 3. Early labor 4. Augmentation of labor 5. Advanced maternal age 6. GBS negative 7. FHR Category I Diagnosis on Discharge: 1. 36yo PPD#1 s/p TSVD viable male 2. 1st degree perineal laceration - intact 3. 4. Normal recovery Brief history: She is a patient of [facility] who presented on 04/09/2022 for augmentation of labor secondary to postpdates . She was noted to be 5/80/-2 and vertex. AROM occurred and was noted to be a moderate amount of clear fluid. She spontaneously progressed to delivery a viable male on 04/09/2022 @ 1410. Apgars were 8/9 at 1 and 5 minutes respectively. 1st degree perineal laceration repaired in standard fashion and under sterile conditions. EBL 250mL. She has been doing well in her course. She is ambulating and tolerating a regular diet. She is urinating without difficulty and her lochia is normal. Her pain is well controlled with oral medications. She is bonding well with her baby and without difficulty. She will be discharged home today on day #1 with instructions to continue taking her vitamin while and to continue taking ibuprofen and tylenol over the counter as needed for pain management. She intends to follow up with myself and [facility] in 1 week for telehealth visit or sooner if needed. She has been given precautions to call if she has any worsening fevers, chills, abdominal pain, increased vaginal bleeding or foul smelling vaginal lochia. Physical Exam: Normocephalic, atraumatic. Heart RRR w/o M/G/R, lungs CTAB, abdomen soft and nontender. Fundus firm at U, perineum intact, light lochia rubra, bilateral LE's no edema. - ALLERGIES Allergies/Adverse Reactions: Allergies Allergy/AdvReac Type Severity Reaction Status Date / Time No Known Drug Allergies Allergy Verified 02/06/16 06:49 - LABS Result Diagrams: 04/09/22 09:20
[2022-04-10 17:00] VITALS: BP 134/56
--- NOTE | 2022-04-10 18:48 | Labor Flowsheet ---
Labor Flowsheet Datetime Report Generated by CPN: 04/10/2022 18:48 Datetime: 04/10/2022 16:55 VITAL SIGNS NBP Sys/Vangie/Mean (mmHg): 142 : 56 : 75 Pulse: 70 SpO2 (%): 99 Datetime: 04/09/2022 16:30 Stage of : Temperature (C): 36.7 Temperature Route: Oral Datetime: 04/09/2022 14:05 Pushing Position: Pushing with Contractions Pushing Progress: Descent with Pushing; Pushing Effectively with Contractions Datetime: 04/09/2022 14:03 VAGINAL EXAM Dilatation (cm): 10.0 Effacement (%): 100 Exam by: Gayla Lulú, CNM STAGE 2 Pushing: Urge to Push Datetime: 04/09/2022 14:00 ASSESSMENT A Monitor Mode: Telemetry FHR Baseline Rate : 140 Variability: Moderate 6-25 bpm Accelerations: 10X10 Decelerations: Variable Category: Category II Datetime: 04/09/2022 13:58 PATIENT CARE Patient Position/Activity: Right Lateral Datetime: 04/09/2022 13:45 UTERINE ACTIVITY Monitor Mode: External Frequency (min): 2-3 Quality: Strong Duration (sec): 60-150 Pattern: Normal: <= 5 Contractions in 10 Minutes Resting Tone (Palpate): Relaxed Datetime: 04/09/2022 13:40 LaborFlag: Labor Datetime: 04/09/2022 13:07 Station: -2 Cervix, Consistency: Soft Datetime: 04/09/2022 13:01 COMMUNICATION Communication: RN at Bedside; Provider at Bedside Communication Comments: Gayla Chino CNM at the bedside Datetime: 04/09/2022 11:48 Patient Care Comments: Patient started using nitrous oxide at this time Datetime: 04/09/2022 11:30 Contraction Comments: more uncomfortable Datetime: 04/09/2022 10:30 FHR Baseline Changes: No Baseline Change Datetime: 04/09/2022 10:02 Membrane Status: Ruptured Membranes Ruptured Date/Time: 04/09/2022 10:02 Membranes Rupture Method: Artificial Amniotic Fluid Color: Clear Amniotic Fluid Amount: Moderate Amniotic Fluid Odor: None Vaginal Bleeding: None
== END 2022-04-10 17:50 | disposition home or self-care (01) | DRG 807 ==
LOC: WFO 07:06 → FBP 07:15 → WFO 08:39 → FBP 08:40
PROVIDERS: ADMIT Nurse Practitioner Obstetrics & Gynecology; ATTEND Nurse Practitioner Obstetrics & Gynecology
PROC: 10907ZC Drainage of Amniotic Fluid, Therapeutic from Products of Conception, Via Natural or Artificial Opening (ICD-10-PCS; principal; 2022-04-09)
PROC: 10E0XZZ Delivery of Products of Conception, External Approach (ICD-10-PCS; 2022-04-09)
PROC: 0HQ9XZZ Repair Perineum Skin, External Approach (ICD-10-PCS; 2022-04-09)
DX: O48.0 Post-term pregnancy (principal); Z37.0 Single live birth; Z3A.41 41 weeks gestation of pregnancy; O70.0 First degree perineal laceration during delivery
CPT/HCPCS: 85025; 86850; 86900; 86901; A9270; J7120

== ENCOUNTER 2023-11-04 11:17 | Outpatient (CLI) | payer OTHER ==
[2023-11-04 11:50] LABS: BASOPHILS # (AUTO) 0.1 10^3/uL (0.0-0.1); BASOPHILS % (AUTO) 0.7 %; EOSINOPHILS # (AUTO) 0.3 10^3/uL (0.0-0.7); EOSINOPHILS % (AUTO) 2.9 %; HCT - HEMATOCRIT 35.4 % (37.0-47.0); LYMPHOCYTES # (AUTO) 1.8 10^3/uL (1.5-3.5); LYMPHOCYTES % (AUTO) 17.1 %; MEAN CORPUSCULAR HEMOGLOBIN 29.6 pg (27.0-31.0); MEAN CORPUSCULAR HGB CONC 33.9 g/dL (32.0-36.0); MEAN CORPUSCULAR VOLUME 87.2 fL (81.0-99.0); MEAN PLATELET VOLUME 9.4 fL (7.9-10.8); MONOCYTES # (AUTO) 0.6 10^3/uL (0.0-1.0); MONOCYTES % (AUTO) 5.4 %; NEUTROPHILS # (AUTO) 7.5 10^3/uL (1.5-6.6); NEUTROPHILS % (AUTO) 73.4 %; PLT - PLATELET COUNT 290 10^3/uL (130-450); RED BLOOD COUNT 4.06 10^6/uL (4.20-5.40); RED CELL DISTRIBUTION WIDTH 12.7 % (12.0-15.0); WHITE BLOOD COUNT 10.2 x10^3/uL (4.8-10.8)
[2023-11-05 02:09] LABS: HBsAG SCREEN Negative (Negative); HCV AB Non Reactive (Non Reactive)
[2023-11-05 04:08] LABS: HIV SCREEN 4TH GENERATION Non Reactive (Non Reactive)
[2023-11-05 05:10] LABS: RPR Non Reactive (Non Reactive)
[2023-11-05 16:10] LABS: VARICELLA-ZOSTER AB IGG 717 index (Immune >165)
== END 2023-11-04 11:18 | disposition home or self-care (01) ==
LOC: LAB 11:17
PROVIDERS: ATTEND Nurse Practitioner Obstetrics & Gynecology
DX: Z36.89 Encounter for other specified antenatal screening (principal)
CPT/HCPCS: 36415; 85025; 86592; 86762; 86787; 86803; 86850; 86900; 86901; 87340; 87389

== ENCOUNTER 2023-11-13 16:06 | Outpatient (CLI) | payer MEDICAID, OTHER ==
--- NOTE | 2023-11-14 22:45 | Ultrasound Report ---
PROCEDURE: OB Anatomy Scan INDICATIONS: SUPERVISION OF OUTSIDE/PRIOR DATING DATA: Last menstrual period (LMP): 06/26/2023. LMP-based estimated date of delivery (RAKEL): 04/01/2024. First dating scan (date and location): 09/03/2023. Estimated date of delivery (RAKEL) from first dating scan: 04/01/2024. The below data below was generated using the outside clinical RAKEL of 04/01/2024 TECHNIQUE: Real-time scanning was performed of the fetus, with image documentation and biometric measurements. Endovaginal scanning: Not performed. COMPARISON: None. FINDINGS: General: A single living intrauterine gestation is present. Presentation: Variable Placenta: Placental position is posterior, without previa. Amniotic fluid index: 14.1 cm, within normal limits for gestational age. heart rate: 143 beats per minute. Maternal cervical canal: 4.1 cm long; normal length is 2.5 cm or more. biometrics: Biparietal diameter: 4.86 cm, 20 weeks and 5 days (77.8%) Head circumference: 18.05 cm, 20 weeks and 3 days (64.4%) Abdominal circumference: 15.33 cm, 20 weeks and 4 days (62.4%) Femur length: 3.54 cm, 21 weeks and 1 day (81.8%) Estimated gestational age from initial scan: 20 weeks and 0 days Composite gestational age from present scan: 20 weeks and 4 days Estimated weight and percentile: 377.6 g which correlates with the 86.6 percentile for gestati onal age. Measurement variability in biometric dating: +/- 10 days from 12-20 weeks gestation, +/- 2 weeks from 20-30 weeks gestation, +/- 3 weeks at 30 weeks gestation or later. Anatomic survey: Neuro: Ventricles are normal at less than 10 mm. Cisterna magna is normal at 3-11 mm. Cerebellum i s normal in size and morphology. Nuchal skin fold: Normal at less than 6 mm between 14 and 20 weeks gestational age. Face: Nose and lips are normal. facial profile not well visualized. Spine: No evidence for spina bifida. Heart: 4-chambered heart as well as the left/right ventricular outflow tracts were not well visualiz ed secondary to positioning throughout the exam. Diaphragm: Diaphragm is intact. Stomach: Left-sided stomach is present. Kidneys: No hydronephrosis. Normal is less than 5 mm in 2nd trimester, less than 7 mm in 3rd trimester. Cord: 3 vessel cord has orthotopic insertion. Bladder: Normal in size. Extremities: All 4 extremities are visualized. IMPRESSION: Single living intrauterine gestation with estimated sonographic gestational age of approximately 20 w eeks and 4 days versus approximately 20 weeks and 0 days by initial scan. Normal interval growth has occurred. The facial profile, four-chamber heart, and left/right ventricular outflow tracts were not well visualized on this examination secondary to positioning throughout the examination. Follow-up imaging recommended. Otherwise, unremarkable routine second trimester anatomy screening survey. Estimated weight of approximately 377.6 g which correlates with the 86.6th percentile for gesta tional age. Reviewed by: Danie Kimbrough MD on 11/14/2023 10:44 PM [facility] Approved by: Danie Kimbrough MD on 11/14/2023 10:44 PM [facility] Station ID: [id number]
== END 2023-11-13 16:07 | disposition home or self-care (01) ==
LOC: DI 16:06
PROVIDERS: ATTEND Nurse Practitioner Obstetrics & Gynecology
DX: Z34.02 Encounter for supervision of normal first pregnancy, second trimester (principal); Z36.89 Encounter for other specified antenatal screening

== ENCOUNTER 2023-11-25 18:32 | Outpatient (CLI) | payer OTHER ==
--- NOTE | 2023-11-26 09:50 | Ultrasound Report ---
PROCEDURE: OB Follow up INDICATIONS: SUPERVISION OF OUTSIDE/PRIOR DATING DATA: Last menstrual period (LMP): 06/26/2023. LMP-based estimated date of delivery (RAKEL): 04/01/2024. First dating scan (date and location): Evaluate for possible 09/03/2023. Estimated date of delivery (RAKEL) from first dating scan: 04/01/2024. The below data below was generated using the ultrasound and working RAKEL of 04/01/2024 TECHNIQUE: Real-time scanning was performed of the fetus, with image documentation and biometric measurements. Endovaginal scanning: Not performed. COMPARISON: None. FINDINGS: General: A single living intrauterine gestation is present. Presentation: Vertex Placenta: Placental position is posterior, without previa. Amniotic fluid index: 16.5 cm, within normal limits for gestational age. heart rate: 148 beats per minute. Maternal cervical canal: Not well seen. Estimated gestational age from initial scan: 21 weeks 5 days Other: profile, four-chamber heart, RVOT, and LVOT are all well-seen, and within normal limits IMPRESSION: 1. Living second trimester intrauterine with no sonographic evidence of complications. 2. Limited study documenting normal profile and heart views, completing a normal second trimest er anatomical survey. Reviewed by: Michael Daniel MD on 11/26/2023 9:49 AM PST Approved by: Michael Daniel MD on 11/26/2023 9:49 AM PST Station ID: [id number]
== END 2023-11-25 18:33 | disposition home or self-care (01) ==
LOC: DI 18:32
PROVIDERS: ATTEND Nurse Practitioner Obstetrics & Gynecology
DX: Z34.02 Encounter for supervision of normal first pregnancy, second trimester (principal); Z36.89 Encounter for other specified antenatal screening

== ENCOUNTER 2023-12-27 10:38 | Outpatient (CLI) | payer OTHER ==
[2023-12-27 11:51] LABS: HCT - HEMATOCRIT 32.8 % (37.0-47.0); MEAN CORPUSCULAR HEMOGLOBIN 30.2 pg (27.0-31.0); MEAN CORPUSCULAR HGB CONC 33.5 g/dL (32.0-36.0); MEAN CORPUSCULAR VOLUME 90.1 fL (81.0-99.0); MEAN PLATELET VOLUME 9.1 fL (7.9-10.8); RED BLOOD COUNT 3.64 10^6/uL (4.20-5.40); WHITE BLOOD COUNT 9.5 x10^3/uL (4.8-10.8)
== END 2023-12-27 10:39 | disposition home or self-care (01) ==
LOC: LAB 10:38
PROVIDERS: ATTEND Nurse Practitioner Obstetrics & Gynecology
DX: Z36.9 Encounter for antenatal screening, unspecified (principal)
CPT/HCPCS: 36415; 82950; 85027

== ENCOUNTER 2024-04-01 08:05 | Inpatient (IN) | payer OTHER ==
[2024-04-01] MEDS ORDERED: TRANEXAMIC ACID IN NACL 1,000 MG/100 ML BAG IV PRN (08:28)
[2024-04-01] MEDS ORDERED: lidocaine 1% 20 ML MDV ID PRN (08:28)
[2024-04-01] MEDS ORDERED: OXYTOCIN 10 UNIT/ML VIAL IM PRN (08:28)
[2024-04-01] MEDS ORDERED: TERBUTALINE 1 MG/ML VIAL SUBQ PRN (08:28)
[2024-04-01] MEDS ORDERED: fentaNYL 100 MCG/2 ML VIAL IVP PRN (08:28)
[2024-04-01] MEDS ORDERED: CARBOPROST TROMETHAMINE 250 MCG/ML VIAL IM PRN (08:28)
[2024-04-01] MEDS ORDERED: METHYLERGONOVINE 0.2 MG/ML VIAL IM PRN (08:28)
[2024-04-01] MEDS ORDERED: miSOPROStoL 200 MCG TABLET PR PRN (08:28)
[2024-04-01] MEDS ORDERED: SODIUM CHLORIDE FLUSH 0.9% 10 ML SYRINGE IVP PRN (08:28)
--- NOTE | 2024-04-01 08:28 | HISTORY & PHYSICAL EXAMINATION ---
Admit History - : 5 Parity: 3 Premature: 0 Ectopic: 0 : 1 Care: positive: [facility] Risk/History: positive: None Smoking Status: Never smoker - Mother's Labs Mother's Blood Type: positive: O Mother's RH: positive: Positive GBS: positive: Group B Step Negative Rubella Status: positive: Immune - Other Maternal History Other Maternal History: HPI: This 38 yo @ 40+0 weeks by LMP and confirmed by 9+6 week ultrasound. Presents to [facility] for scheduled IOL. Upon arrival her cervix was XXX and vertex with intact membranes. Cochran score XXX We reviewed management options in clinic prior to presentation as well as at the time of admission. Patient desires AROM. She has been a patient of [facility] for the duration of her which has remained uncomplicated with the exception of advanced maternal age. Her weekly NSTs have been reactive. No Headache, visual changes or right upper quadrant abdominal pain. Denies nausea and vomiting. Denies urinary urgency or dysuria. ROS: All other symptoms reviewed and were negative except per HPI. Dating criteria: LMP: 06/26/2023 ---> RAKEL by LMP 04/01/2024 Initial u/s @ 9+6wks dates with RAKEL 04/01/2024 serial Exams agree OB Hx: G1: Term 02/07/2016 G2: SAB G3: Term 02/05/2018 G4:Term 04/09/2022 G5: Current Prior history of a blood transfusion? No. 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 SAB x1. Last pap 12/2020, WNL, no hx abnormal. Denies history of gonorrhea, chlamydia, genital herpes, oral herpes or any other STI. Sexual partner does NOT have HSV (oral or genital). Medical Hx: no significant Surgical Hx: none Social Hx: Monogamous with male partner. Stopped drinking alcohol due to . Denies current use of tobacco, marijuana or other recreational drugs. Reports that she is safe in current relationship. Family Hx: Denies family history of congenital anomalies, Cystic Fibrosis or chromosomal abnormalities. Allergies: NKDA Objective: Pre- BMI: 22.9 VSS as above. See PE below Medical Hx: No significant Surgical Hx: None Social Hx: Monogamous with male partner. Stopped drinking alcohol due to . Denies current use of tobacco, marijuana or other recreational drugs. Former tobacco user. Reports that she is safe in current relationship. Family Hx: Denies family history of congenital anomalies, Cystic Fibrosis or chromosomal abnormalities Home medications: Fish oil+D3, vitamin, ferrous sulfate, calcium Course: Blood type O+, antibody negative 26 week labs: H&H 11/36.8%, PLT 186 Rubella immune, Varicella Immune Hep B neg, Hep C neg HIV non-reactive, RPR non-reactive GCCT negative Genetic screening: Declines genetic testing, carrier screening and MsAFP. FAS: WNL, EFW 86.6% 3 VC, Posterior placenta, GLENN normal glucola: 118 Tdap: Declined Flu: Not received (Jul - January) GBS NEG Physical exam: Normocephalic, atraumatic Heart RRR w/o M/G/R Lungs CTAB Abdomen gravid, soft, nontender. EFW 3500g FHR baseline 140, moderate variability, + accelerations, no decelerations Contractions palpate moderate every 3-6 minutes with soft resting tone SVE 4/80/-2 , Vertex, ruptured (CLEAR) AROM'd Bilateral LE's no edema Mood is good. Assessment: 38 yo @ 40 weeks gestation by sure LMP and 6+6 wk U/S Induction of labor by AROM FHR Cat I GBS NEG Plan: Admit to [facility] for Induction of labor. Intermittent heart rate auscultation. Jacuzzi PRN. Nitrous oxide PRN. Anticipate . Meds/Allgy - Allergies Allergies/Adverse Reactions: Allergies Allergy/AdvReac Type Severity Reaction Status Date / Time No Known Drug Allergies Allergy Verified 02/06/16 06:49 Physical - Abdominal Exam Vital Signs: irregular Contraction Intensity: positive: Mild Uterine Resting Tone: positive: Soft - Monitoring Heart Rate Baseline: 140 Strip Review: positive: Category I - Presentation Presentation: positive: Vertex - Vaginal Exam Membranes: positive: Membranes ruptured Dilation (in cm): 4 Effacement (%): 80 Station: positive: -2 Cervical Position: positive: Posterior - Speculum Exam Speculum Exam Performed: positive: No Plan for Labor - Plan For Labor I expect patient to be DC'd or transferred within 96 hours.: Yes
[2024-04-01 08:52] LABS: BASOPHILS # (AUTO) 0.1 10^3/uL (0.0-0.1); BASOPHILS % (AUTO) 0.6 %; EOSINOPHILS # (AUTO) 0.1 10^3/uL (0.0-0.7); EOSINOPHILS % (AUTO) 1.3 %; HCT - HEMATOCRIT 39.8 % (37.0-47.0); HGB - HEMOGLOBIN 13.1 g/dL (12.0-16.0); LYMPHOCYTES # (AUTO) 1.9 10^3/uL (1.5-3.5); LYMPHOCYTES % (AUTO) 23.5 %; MEAN CORPUSCULAR HEMOGLOBIN 28.9 pg (27.0-31.0); MEAN CORPUSCULAR HGB CONC 32.9 g/dL (32.0-36.0); MEAN CORPUSCULAR VOLUME 87.9 fL (81.0-99.0); MEAN PLATELET VOLUME 10.4 fL (7.9-10.8); MONOCYTES # (AUTO) 0.6 10^3/uL (0.0-1.0); MONOCYTES % (AUTO) 7.4 %; NEUTROPHILS # (AUTO) 5.5 10^3/uL (1.5-6.6); NEUTROPHILS % (AUTO) 66.7 %; PLT - PLATELET COUNT 237 10^3/uL (130-450); RED BLOOD COUNT 4.53 10^6/uL (4.20-5.40); RED CELL DISTRIBUTION WIDTH 13.1 % (12.0-15.0); WHITE BLOOD COUNT 8.3 x10^3/uL (4.8-10.8)
[2024-04-01] MEDS ORDERED: SODIUM CHLORIDE FLUSH 0.9% 10 ML SYRINGE IVP SCH (09:00)
--- NOTE | 2024-04-01 13:39 | PROVIDER PROGRESS NOTE ---
Labor Progress Note - Uterine Monitoring Uterine Monitoring Mode: positive: External toco Contraction Frequency (min/apart): 2.5-5 Contraction Intensity: positive: Mild to moderate Uterine Resting Tone: positive: Soft - Monitoring Monitor Mode: positive: External ultrasound Heart Rate Baseline: 150 Heart Rate Variability: positive: Moderate (6-25 bmp) Accelerations: positive: Present, 15x15 Decelerations: positive: None Strip Review: positive: Category I - Labor Progress Note Labor Progress Note/Additional Text: S: Frequently changing activity from birthing ball, to ambulating halls to labor tub. Rating pain 1/10vps. Feeling only twinges of pain intermittently. Somewhat discouraged that she hasn't delivered yet. O: FHR baseline 150, moderate variability, + accels, - decels. Overall stevan ssuring with moderate variability maintained throughout. Contractions palpate mild to moderate with soft resting tone. Rajinder q 2.5-5 SVE = not reevaluated. Previously 4/80/-2 posterior. Ruptured S/p AROM @ 0845, clear fluid A: 38yo @ 40wks gestation by LMP c/w 1st trimester U/S Elective IOL FHR Category I GBS neg RH positive P: Initiate nipple stimulation for further labor augmentation. Intermittent monitoring. encourage frequent activity and positional changes Nitrous PRN for pain management. Anticipate .
[2024-04-01] MEDS: LACTATED RINGERS 1,000 ML IV PRN (16:22)
[2024-04-01] MEDS: OXYTOCIN/SODIUM CHLORIDE 500 ML IV PRN (16:22)
--- NOTE | 2024-04-01 16:58 | DELIVERY NOTE ---
Delivery Note - Labor Labor: positive: Spontaneous - Delivery Method Delivery Method: positive: Spontaneous vaginal delivery - Presentation Presentation: positive: SARAH - left occiput anterior - Nuchal Cord Nuchal Cord: positive: None - Anesthetic Anesthetic Type: - Amniotic Fluid Description Amniotic Fluid Description: positive: Clear - Laceration Laceration: positive: 1st degree, Perineal - Delivery Outcome Delivery Outcome: positive: Livebirth - [place]: positive: Placed in direct skin contact with mother, Suctioned, Stimulated, Warmed, Lena used sex: positive: Female - Cord Cord: positive: 3 vessels - Placenta Placenta: positive: Intact - Estimated Blood Loss Estimated Blood Loss (in cc): 250 - Post Delivery Events Post Delivery Events: positive: No post delivery events - Delivery Comments (Free Text/Narrative) Delivery Comments (Free Text/Narrative): This 38 -year-old, . @ 40 + 0 gestation by sure LMP and confirmed by first trimester ultrasound, presented @ 0800 for term elective induction of labor. Cervix was 4/80/-2 Vertex presentation by exam and pat's. GBS negative (not treated). FHR pattern demonstrated 140-150. baseline in a category I prior to second stage. Normal labor course. Anesthesia: intermittent nitrous. AROM occurred @ 0845. She then progressed to complete/complete @ 1617 and ready to deliver. Second stage began @ 1617. : Normal spontaneous vaginal delivery of a viable female on 04/01/2024 @ 1619. No nuchal cord. The was placed on maternal abdomen, stimulated, dried and placed skin to skin. Apgars 8 @ 1 min, and 9 @ 5 minutes. Pitocin administered via IV for hemostasis. The umbilical cord was allowed to stop pulsating at which time it was doubly clamped and clamped by delivering provider per patient request. 3VC. Cord blood was obtained. Fundal massage and gently cord traction applied for active management of the third stage, placenta delivered spontaneously and intact @1631. EBL 250. Placenta delivered spontaneously at 1631 and was WAS NOT sent to pathology. Thirty units of Pitocin were added to the IV fluid and allowed to run freely. Uterine massage was performed until uterus was deemed firm. Inspection of the perineum noted a first-degree midline perineal laceration largely in the area of previous scar tissue. Hemostatic. Discussed with patient who was agreeable to no repair. Uterus again massaged and found to be firm. Tissues reinspected and continue to be hemostatic. Needle and sponge counts were correct. /skin to skin initiated. Family bonding well. Both mother and baby are in stable condition.
[2024-04-01] MEDS ORDERED: HYDROCORTISONE 1% CREAM 28 GM TUBE PR PRN (16:59)
[2024-04-01] MEDS ORDERED: WITCH HAZEL/GLYCERIN 1 PAD TOP PRN (16:59)
[2024-04-01] MEDS ORDERED: IBUPROFEN 600 MG TABLET PO SCH (17:00)
[2024-04-01] MEDS: ACETAMINOPHEN 500 MG TABLET PO SCH (17:10)
[2024-04-01] MEDS ORDERED: BENZOCAINE/MENTHOL LOZENGE MM PRN (17:16)
[2024-04-01] MEDS: IBUPROFEN 800 MG TABLET PO SCH (17:22)
[2024-04-01] MEDS: DOCUSATE SODIUM 100 MG CAPSULE PO SCH (21:59)
[2024-04-02 08:49] VITALS: O2SAT 98
--- NOTE | 2024-04-02 10:25 | Discharge Plan ---
Discharge Plan Problem Reviewed?: Yes Disposition: Home, Self Care Condition: Good Diet: Regular Activity Restrictions: No Restrictions Shower Restrictions: No Driving Restrictions: No Weight Bearing: Full Weight Instruction Topics: Vaginal After, Nutrition , Self Care No Smoking: If you smoke, Please STOP! Call for help. Follow-up with: Gayla Chino CNM, MEAGHAN [Provider Admit Priv/Credential] - 1 Week
--- NOTE | 2024-04-02 10:34 | DISCHARGE SUMMARY ---
Discharge Summary Condition at Discharge: Good Discharge Disposition: 01 Home, Self Care - HOSPITAL COURSE Hospital Course: Date of Admission: 04/01/2024 Date of Discharge: 04/02/2024 Diagnosis on Admission: 1. 38yo @ 40.0wk gestation by LMP c/w 6.6wk U/S 2. Advanced maternal age 3. FHR Category I 4. GBS negative Diagnosis on Discharge: 1. 38yo PPD#1 s/p TSVB viable female 2. 3. Normal recovery Brief History: She is a patient of [facility] who presented on 04/01/2024 for medical induction of labor secondary to advanced maternal age. Cervix was 4/80/- 2 and vertex with intact membranes. AROM occurred for induction of labor and was noted to be a moderate amount of clear fluid. Pt spontaneously progressed to deliver a viable female infant on 03/21/2024 @ 1619. Apgars were 8/9 at 1 and 5 minutes respectively. EBL 250mL. 1st degree perineal laceration was hemostatic and left unrepaired. She has been doing well in her course. She is ambulating and tolerating a regular diet. She is urinating without difficulty and her lochia is normal. Her pain is well controlled with oral medications. She is without difficulty and she is bonding well with her baby. She will be discharged home today on day #1 with instructions to continue taking her vitamin while and to continue taking ibuprofen and tylenol over the counter as needed for pain management. She intends to follow up with myself in 1 week for routine visit or sooner if needed. She has been given precautions to call if she has any worsening fevers, chills, abdominal pain, increased vaginal bleeding or foul smelling vaginal lochia. Physical exam: Normocephalic, atraumatic. Heart RRR w/o M/G/R, lung CTAB. Abdomen soft and nontender, fundus firm a U-1, perineum intact, light lochia rubra. Bilateral LE's trace edmea. Mood is good. - ALLERGIES Allergies/Adverse Reactions: Allergies Allergy/AdvReac Type Severity Reaction Status Date / Time No Known Drug Allergies Allergy Verified 02/06/16 06:49 - LABS Result Diagrams: 04/01/24 08:30
[2024-04-02 14:17] VITALS: BP 123/72
--- NOTE | 2024-04-02 17:06 | Labor Flowsheet ---
Labor Flowsheet Datetime Report Generated by CPN: 04/02/2024 17:05 Datetime: 04/02/2024 13:20 VITAL SIGNS NBP Sys/Vangie/Mean (mmHg): 123 : 72 : 83 Pulse: 82 Datetime: 04/02/2024 07:59 SpO2 (%): 98 Datetime: 04/01/2024 17:44 PAIN Pain Scale: 3 Pain Presence: Constant Pain Type: Cramping; Dull Pain Location: Perineum Pain Goal: 3 Pain Relief Measures: Pain Medication Given Datetime: 04/01/2024 16:37 MEDICATIONS Pitocin (milliunits): Decreased to @ 125 Datetime: 04/01/2024 16:20 Stage of : Recovery Datetime: 04/01/2024 16:17 STAGE 2 Pushing: Urge to Push; Involuntary Pushing Pushing Position: Pushing with Contractions; Pushing Left Side Pushing Progress: with Pushing; Pushing Effectively with Contractions Datetime: 04/01/2024 16:15 UTERINE ACTIVITY Monitor Mode: External Frequency (min): 2-2.5 Quality: Strong Duration (sec): 50-80 Pattern: Normal: <= 5 Contractions in 10 Minutes Resting Tone (Palpate): Relaxed ASSESSMENT A Monitor Mode: Telemetry FHR Baseline Rate : 150 Variability: Moderate 6-25 bpm Accelerations: 15X15 Decelerations: Early; Variable Category: Category II Comments: Delivery imminent Datetime: 04/01/2024 16:01 Respirations: 24 Actions for Decelerations: Side to Side; Blood Pressure; Provider Notified Patient Position/Activity: Left Lateral COMMUNICATION LaborFlag: Labor Datetime: 04/01/2024 15:50 Pain Assessment Comments: nitrous oxide Comfort Measures: Family Support Datetime: 04/01/2024 15:19 I/O Interventions: Up to BR Datetime: 04/01/2024 14:30 Patient Care Comments: nipple stimulation performed by patient Datetime: 04/01/2024 14:28 Temperature (C): 36.6 Temperature Route: Oral Datetime: 04/01/2024 10:47 Membranes Ruptured Date/Time: 04/01/2024 08:45 Datetime: 04/01/2024 08:45 Membrane Status: Ruptured Membranes Rupture Method: Artificial Amniotic Fluid Color: Clear Amniotic Fluid Amount: Moderate Amniotic Fluid Odor: None Datetime: 04/01/2024 08:41 VAGINAL EXAM Dilatation (cm): 3.0 Effacement (%): 80 Station: -2 Exam by: MEAGHAN Gayle, student CNM Datetime: 04/01/2024 08:30 PATIENT CARE IV/Blood Work: IV Started; Labs Drawn with IV Start
== END 2024-04-02 15:50 | disposition home or self-care (01) | DRG 807 ==
LOC: WFO 08:05 → FBP 08:06 → WFO 08:32
PROVIDERS: ADMIT Nurse Practitioner Obstetrics & Gynecology; ATTEND Nurse Practitioner Obstetrics & Gynecology
PROC: 10907ZC Drainage of Amniotic Fluid, Therapeutic from Products of Conception, Via Natural or Artificial Opening (ICD-10-PCS; principal; 2024-04-01)
PROC: 10E0XZZ Delivery of Products of Conception, External Approach (ICD-10-PCS; 2024-04-01)
DX: O70.0 First degree perineal laceration during delivery (principal); Z37.0 Single live birth; Z3A.40 40 weeks gestation of pregnancy
CPT/HCPCS: 59409; 85025; 86850; 86900; 86901; A9270; J7120